=== PATIENT | female | born 2000 | race Caucasian/White ===

== ENCOUNTER 2023-05-14 08:13 | Emergency (ER) | payer OTHER, SELFPAY ==
[2023-05-14 08:15] VITALS: BP 123/72; PULSE 93; RESP 18; TEMP 37; O2SAT 98
--- NOTE | 2023-05-14 08:29 | ED.FEMALEGU ---
HPI - Female Genitourinary General Chief complaint: Urogenital-Female Stated complaint: Female Urogenital Source: patient and RN notes reviewed History of Present Illness HPI Narrative: 23 yo F presents to urgent care with complaints of burning with urination that started on Wednesday. Pt states she noticed red, painful, bumps in her genital region yesterday. Pt reports some fevers at home, starting on Wednesday. Pt reports a brownish, vaginal, discharge and some lower back pain with certain positions. Denies any vomiting, diarrhea, abdominal pain, or flank pain. Pt has been taking Azo at home. Related Data Allergies Allergy/AdvReac Type Severity Reaction Status Date / Time No Known Allergies Allergy Verified 05/14/23 08:27 Review of Systems Review of Systems: CONSTITUTIONAL: Denies chills, or sweats. EYES: Denies visual changes, redness, or discharge. ENT: Denies otalgia and sore throat CARDIOVASCULAR: Denies chest pain, palpitations, or edema. RESPIRATORY: Denies cough or dyspnea. GASTROINTESTINAL: Denies abdominal pain, nausea, vomiting, or diarrhea. SKIN: Denies rash or itching. MUSCULOSKELETAL: Denies joint pain, or myalgia. NEUROLOGIC: Denies headache, numbness, or weakness. Pertinent positives per HPI. PMFSH Comments At the time of my signature, I reviewed and agree with the nursing past medical, surgical, social, and family history. There is no relevant family history pertinent to the patient complaint. Exam Narrative: GENERAL: This is a well-nourished, well-developed patient, in no apparent distress. HEAD: normocephalic, atraumatic. EYES: Sclera clear/white. Vision is grossly intact. EARS: External ears normal, auditory canals clear and without drainage, TMs normal without perforation. Hearing grossly intact. NOSE: External nose normal with no obvious nasal discharge, nares without redness, no rhinorrhea. THROAT: Mucous membranes moist, posterior pharynx clear. 2 blisters noted to right tonsil and external lips. NECK: Neck supple, non-tender without lymphadenopathy, masses or thyromegaly. CARDIOVASCULAR: Regular rate and rhythm without murmurs, gallops, or rubs. RESPIRATORY: Clear to auscultation. Breath sounds equal bilaterally. No wheezes, rales, or rhonchi. GASTROINTESTINAL: Abdomen soft, non-tender, nondistended. Bowel sounds are active. No hepato-splenomegaly, or palpable masses. No guarding. GENITOURINARY: multiple, erythremic, blisters to external and internal genitalia; painful. Brownish/white vaginal discharge noted against vaginal os. SKIN: warm, intact with no suspicious lesions or rash, good texture and turgor. NEURO: awake, alert, and oriented to person, place and time. There were no obvious focal neurologic abnormalities. EXTREMITIES: No clubbing, cyanosis, or edema. No joint tenderness, effusion, or edema noted. BACK: Nontender without deformity or crepitus. No flank tenderness. Course Course Level of Care: Express Care Visit Vital Signs Vital signs: Vital Signs Temperature 98.6 F 05/14/23 08:15 Pulse Rate 93 05/14/23 08:15 Respiratory Rate 18 05/14/23 08:15 Blood Pressure 123/72 05/14/23 08:15 Pulse Oximetry 98 05/14/23 08:15 Temperature 98.6 F 05/14/23 08:15 Pulse Rate 93 05/14/23 08:15 Respiratory Rate 18 05/14/23 08:15 Blood Pressure 123/72 05/14/23 08:15 Pulse Oximetry 98 05/14/23 08:15 reviewed MDM - Female Genitourinary Differential Diagnosis Differential diagnosis: Likely urinary tract infection, bacterial vaginosis, trichomoniasis, cervicitis, vaginitis, cystitis and other (HSV, genital warts, syphilis, other STI) Lab Data Attestation: I reviewed the patient's lab results. Critical Care Time Critical Care Time Critical Care Time: No Discharge Plan Discharge Clinical Impression: Genital HSV Qualifiers: Herpes simplex infection site: unspecified Qualified Code(s): A60.00 - Herpesviral infection of urogenital system, unsp
[2023-05-14] MEDS: cefTRIAXone 500 MG VIAL IM (09:33)
[2023-05-14 19:15] LABS: Trichomonas Vag PCR NOT DETECTED (NOT DETECTE)
[2023-05-14 19:38] LABS: Chlamydia trachomatis NOT DETECTED (NOT DETECTE); Neisseria gonorrhoeae PCR NOT DETECTED (NOT DETECTE)
== END 2023-05-14 09:25 | disposition home or self-care (01) ==
PROVIDERS: Emergency Provider Nurse Practitioner Family
DX: A60.00 Herpesviral infection of urogenital system, unspecified (principal); N39.0 Urinary tract infection, site not specified; B95.1 Streptococcus, group B, as the cause of diseases classified elsewhere
CPT/HCPCS: 81003; 87070; 87077; 87086; 87255; 87491; 87591; 87661; 96372; 99204; G0463; J0696